=== PATIENT | male | born 1985 | race Caucasian/White ===

== ENCOUNTER 2022-09-24 23:59 | Emergency (ER) | payer BC, SELFPAY ==
--- NOTE | 2022-09-25 00:03 | ED.GENADULT ---
HPI - General Adult General Chief complaint: Dental/Oral Stated complaint: tooth ache Time Seen by Provider: 09/25/22 00:02 History of Present Illness HPI narrative: 37yo man with severe dental caries presents with left upper molar pain at the site of a severely eroded tooth #16. No fevers or chills or neck swelling. Related Data Allergies Allergy/AdvReac Type Severity Reaction Status Date / Time No Known Allergies Allergy Verified 09/25/22 00:03 Review of Systems Review of Systems: All systems reviewed & are unremarkable except as noted in HPI and below Constitutional: Constitutional: Denies chills and Denies fever(s) ENT: Denies dizziness Cardiovascular: Cardiovascular: Denies chest pain Respiratory: Respiratory: Denies dyspnea Exam Const: General: healthy appearing, no acute distress and alert Nutritional Appearance: well nourished HENMT: Other: severe dental caries; no gingival abscess Eyes: Conjunctivae: conjunctivae normal Resp: Effort & Inspection: normal respiratory effort and not labored Cardio: Rate: regular rate Skin: General skin exam: normal color, no jaundice and no pallor Medical Decision Making [facility] Narrative Medical decision making narrative: odontalgia DDx dental caries, periapical abscess, gingivitis Discharge Plan Discharge Clinical Impression: Odontalgia, Severe dental caries Patient Disposition: Home, Self-Care Condition: Improved Instructions: Antibiotic Form Additional Instructions: Take the antibiotics as prescribed. Pain should resolve within the next 48 hours. If your pain returns while waiting weeks or months to get in to the dentist, you can use the one refill to complete another course of antibiotics. Prescriptions: New cephalexin 500 mg capsule 500 mg PO TIDWMEAL Qty: 30 1RF ketorolac 10 mg tablet 10 mg PO Q6H PRN (Reason: moderate to severe acute pain) 5 Days Qty: 15 0RF Follow-up/Referrals: UNKNOWN,DOCTOR [Primary Care Provider] - Stand Alone Forms: Work/School Release IP Time of Disposition: 00:07
[2022-09-25 00:04] VITALS: BP 154/93; PULSE 103; RESP 20; TEMP 36.2; O2SAT 99
[2022-09-25] MEDS: KETOROLAC (*BKC) 60 MG/2 ML VIAL IM (00:12)
[2022-09-25] MEDS: CEPHALEXIN 500 MG CAPSULE PO (00:12)
[2022-09-25 00:13] VITALS: BP 154/93; PULSE 100; RESP 16; TEMP 36.6; O2SAT 96
[2022-09-25 00:22] VITALS: PULSE 93; RESP 20; O2SAT 99
== END 2022-09-25 00:22 | disposition home or self-care (01) ==
LOC: CHSED 09-25 00:10
PROVIDERS: Emergency Provider Emergency Medicine; PCP Physician Assistant
DX: K02.9 Dental caries, unspecified (principal)
CPT/HCPCS: 96372; 99284; A9270; J1100; J1885

== ENCOUNTER 2022-11-11 13:20 | Emergency (ER) | payer BC, SELFPAY ==
[2022-11-11 13:20] VITALS: BP 125/78; PULSE 82; RESP 16; TEMP 36.4; O2SAT 97
--- NOTE | 2022-11-11 14:22 | ED.GENADULT ---
HPI - General Adult General Chief complaint: Skin/Abscess/Foreign Body Stated complaint: rash Source: patient Mode of arrival: ambulatory Limitations: no limitations History of Present Illness HPI narrative: 37-year-old white male was in the weeds helping his grandfather clean the area 2 days later 5 days ago he broke out in a red erythematous pruritic rash his trunk And his arms. He is using Benadryl cream without much success. Has no problems breathing or cough. Denies any problems eating or drinking voiding or stooling fever sore throat runny nose shortness of breath dizziness or lightheadedness lumps or bumps or lesions bleeding or bruising or any other complaints. Allergies: No known drug allergies past medical history. Hyperlipidemia Related Data Home Medications Medication Instructions Recorded Confirmed atorvastatin 20 mg tablet 20 mg PO DAILY 11/11/22 11/11/22 venlafaxine 150 mg 150 mg PO DAILY 11/11/22 11/11/22 capsule,extended release 24 hr Allergies Allergy/AdvReac Type Severity Reaction Status Date / Time No Known Allergies Allergy Verified 11/11/22 13:48 Review of Systems Review of Systems: All systems reviewed & are unremarkable except as noted in HPI and below Exam Narrative: White male patient no apparent distress.? Head normocephalic, atraumatic.? Eyes conjunctiva pink sclera nonicteric.? Extraocular movements are intact.? Ears externally normal.? Oropharynx is clear with moist mucous membranes without exudates.? Neck is supple nontender no lymphadenopathy.? Lungs are clear.? Heart is regular rate and rhythm without murmurs gallops or rubs.? Extremities no cyanosis clubbing or edema.? Skin is warm and dry. Erythematous macular papular rash on his trunk and his arms consistent with contact dermatitis. Neurological patient is alert and oriented x4.? Motor and sensory grossly intact.? Gait is normal. Course Vital Signs Vital signs: Vital Signs Temperature 36.4 C L 11/11/22 13:20 Pulse Rate 82 11/11/22 13:20 Respiratory Rate 16 11/11/22 13:20 Blood Pressure 125/78 11/11/22 13:20 Pulse Oximetry 97 11/11/22 13:20 Oxygen Delivery Room Air 11/11/22 13:20 Temperature 36.4 C L 11/11/22 13:20 Pulse Rate 82 11/11/22 13:20 Respiratory Rate 16 11/11/22 13:20 Blood Pressure 125/78 11/11/22 13:20 Pulse Oximetry 97 11/11/22 13:20 Oxygen Delivery Room Air 11/11/22 13:20 Medical Decision Making MDM Narrative Medical decision making narrative: patient is placed in room 5 history and physical is performed was given Decadron 10 mg IM. Independent Historian: ? Patient Differential Dx includes but not limited to: contact dermatitis poison dayna poison [place] Medications reviewed Medications treatments given: above Independently Interpreted by me:? External Source Review:?? Medical conditions/social Situation Impacting Patients Care:?? Shared decision Making:? evaluation was discussed with the patient all questions were asked and answered patient agreed on the plan. Noted be taking prednisone 40 mg a day for 5 days and using Benadryl 25 mg every 4 hours as needed for itching. He would return if you get worse or develops any new symptoms. ? Clinical impression:? ? Contact dermatitis ? Patient disposition: ? discharge home ? Condition at discharge: stable Vital Signs Vital Signs: Vital Signs Temperature 36.4 C L 11/11/22 13:20 Pulse Rate 82 11/11/22 13:20 Respiratory Rate 16 11/11/22 13:20 Blood Pressure 125/78 11/11/22 13:20 Pulse Oximetry 97 11/11/22 13:20 Oxygen Delivery Room Air 11/11/22 13:20 Temperature 36.4 C L 11/11/22 13:20 Pulse Rate 82 11/11/22 13:20 Respiratory Rate 16 11/11/22 13:20 Blood Pressure 125/78 11/11/22 13:20 Pulse Oximetry 97 11/11/22 13:20 Oxygen Delivery Room Air 11/11/22 13:20 Discharge Plan Discharge Clinical Impression: Contact dermatitis Qualifier
[2022-11-11 14:40] VITALS: BP 133/94; PULSE 83; RESP 14; O2SAT 98
== END 2022-11-11 14:45 | disposition home or self-care (01) ==
PROVIDERS: Emergency Provider Emergency Medicine; PCP Physician Assistant
DX: L25.9 Unspecified contact dermatitis, unspecified cause (principal)
CPT/HCPCS: 96372; 99283; J1100

== ENCOUNTER 2022-11-29 16:32 | Emergency (ER) | payer BC, SELFPAY ==
[2022-11-29 16:32] VITALS: BP 148/96; PULSE 93; RESP 16; TEMP 36.3; O2SAT 96
--- NOTE | 2022-11-29 16:50 | ED.DENTAL ---
HPI - Dental/Oral General Chief complaint: Dental/Oral Stated complaint: dental pain; jaw swelling Source: patient Mode of arrival: ambulatory Limitations: no limitations History of Present Illness HPI Narrative: 37-year-old male presents with severe tooth decay I had an appointment with dentist that was canceled secondary to a dentist retiring, has surrounding gum inflammation with a right jaw swelling with no shortness of breath no fever chills. MD Complaint: tooth pain Teeth map: 1. severe tooth decay surrounding gum inflammation Onset (ago): week(s) Duration: constant Severity: moderate Severity scale (1-10): 7 Relieving factors: nothing Exacerbating factors: chewing, cold and drinking fluids Context: history of dental caries and poor dental care Associated symptoms: gum swelling Related Data Home Medications Medication Instructions Recorded Confirmed venlafaxine 150 mg 150 mg PO DAILY 11/11/22 11/29/22 capsule,extended release 24 hr (Effexor XR) Allergies Allergy/AdvReac Type Severity Reaction Status Date / Time No Known Allergies Allergy Verified 11/11/22 13:48 Review of Systems Review of Systems: All systems reviewed & are unremarkable except as noted in HPI and below PMFSH Past Medical History Medical History Patient denies medical problems Exam Const: General: healthy appearing Nutritional Appearance: obese Orientation/consciousness: patient oriented x3 Limitations: no limitations HENMT: Other: right lower jaw swelling with tender submandibular gland on the right Eyes: Conjunctivae: conjunctivae normal Neck: Neck: lymphadenopathy Chest: Chest palpation & inspection: normal inspection of the chest Resp: Effort & Inspection: normal respiratory effort Auscultation: clear to auscultation bilaterally Cardio: Rate: regular rate Rhythm: regular rhythm GI: Auscultation: normal bowel sounds Skin: General skin exam: normal color Rashes: no rashes Neuro: General: patient oriented x3 Cranial nerves: Yes Nystagmus not present Extrem: General: normal to inspection Psych: Mental Status: mental status grossly normal Affect: normal affect Course Course Emergency Course: patient rating his pain about a 7/10 with some severe tooth decay and his lower right molars with surrounding gum inflammation, patient receiving 60mg IM Toradol and antibiotics called to his pharmacy. Patient is currently on a waiting list to see a dentist. Vital Signs Vital signs: Vital Signs Temperature 36.3 C L 11/29/22 16:32 Pulse Rate 93 11/29/22 16:32 Respiratory Rate 16 11/29/22 16:32 Blood Pressure 148/96 H 11/29/22 16:32 Pulse Oximetry 96 11/29/22 16:32 Oxygen Delivery Room Air 11/29/22 16:32 Temperature 36.3 C L 11/29/22 16:32 Pulse Rate 93 11/29/22 16:32 Respiratory Rate 16 11/29/22 16:32 Blood Pressure 148/96 H 11/29/22 16:32 Pulse Oximetry 96 11/29/22 16:32 Oxygen Delivery Room Air 11/29/22 16:32 Critical Care Time Critical Care Time Critical Care Time: No Discharge Plan Discharge Clinical Impression: Toothache, Dental abscess Patient Disposition: Home, Self-Care Condition: Stable Instructions: Antibiotic Form, Dental Abscess (ED), Toothache (ED) Additional Instructions: Take medicine as prescribed and follow-up with dentist as soon as possible for further evaluation and treatment. Prescriptions: New amoxicillin 500 mg tablet 500 mg PO TID Qty: 30 0RF naproxen 500 mg tablet 500 mg PO BID PRN (Reason: pain) Qty: 20 0RF No Action venlafaxine [Effexor XR] 150 mg capsule,extended release 24hr 150 mg PO DAILY Follow-up/Referrals: Mohinder,SAMMI Monsivais [Primary Care Provider] - Stand Alone Forms: Work/School Release IP Time of Disposition: 16:55
[2022-11-29] MEDS: KETOROLAC (*BKC) 60 MG/2 ML VIAL IM (16:59)
== END 2022-11-29 17:05 | disposition home or self-care (01) ==
PROVIDERS: Emergency Provider Emergency Medicine; PCP Physician Assistant
DX: K08.89 Other specified disorders of teeth and supporting structures (principal); K04.7 Periapical abscess without sinus
CPT/HCPCS: 96372; 99283; J1885

== ENCOUNTER 2022-11-30 09:45 | Emergency (ER) | payer BC, SELFPAY ==
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
[2022-11-30 09:48] VITALS: BP 142/92; PULSE 78; RESP 20; TEMP 36.6; O2SAT 99
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
[2022-11-30 10:54] VITALS: BP 140/80; PULSE 84; RESP 20; TEMP 37; O2SAT 99
== END 2022-11-30 11:07 | disposition home or self-care (01) ==
PROVIDERS: Emergency Provider Emergency Medicine; PCP Physician Assistant
DX: S30.1XXA Contusion of abdominal wall, initial encounter (principal); V47.0XXA Car driver injured in collision with fixed or stationary object in nontraffic accident, initial encounter
CPT/HCPCS: 74176; 99284

== ENCOUNTER 2023-01-12 15:40 | Emergency (ER) | payer BC, SELFPAY ==
--- NOTE | ~2023-01-12 | XR_ITS ---
EXAMINATION: XR chest 2V DATE: 01/12/2023 16:35 INDICATION: Shortness of breath and 2 weeks of cough TECHNIQUE: frontal and lateral views of the chest were obtained. COMPARISON: Chest radiograph dated 08/19/2016 FINDINGS: The lungs remain clear with no focal airspace opacities, pulmonary edema, pleural effusion or pneumot horax. The cardiomediastinal silhouette is normal. Mild to moderate thoracic spondylosis with chronic mild anterior wedging at T11-L1. IMPRESSION: 1. No acute cardiopulmonary disease. Reviewed, dictated and finalized at location A.
--- NOTE | 2023-01-12 15:47 | ECG_ITS ---
Measurements Intervals [place] Rate: 115 P: 47 IA: 140 QRS: 1 QRSD: 90 T: 57 QT: 298 QTc: 412 Interpretive Statements SINUS TACHYCARDIA ABNORMAL RHYTHM ECG NO PREVIOUS ECG AVAILABLE FOR COMPARISON Electronically Signed On 01-12-2023 17:12:53 CDT by Karlo Sue M.D.
[2023-01-12 15:50] VITALS: BP 133/96; PULSE 134; RESP 24; TEMP 36.2; O2SAT 95
[2023-01-12 15:56] VITALS: O2SAT 96
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
[2023-01-12 17:00] VITALS: BP 135/85; PULSE 108; RESP 20; O2SAT 95
[2023-01-12 17:13] LABS: Influenza A QL RT-PCR Negative (Negative); Influenza B QL RT-PCR Negative (Negative); SARS-CoV-2 RNA PCR Negative (Negative)
[2023-01-12 17:14] LABS: Hematocrit 40.3 % (40.0-54.0); Hemoglobin 13.8 g/dL (14.0-18.0); Mean Corpuscular HGB Conc 34.2 g/dL (32.0-36.0); Mean Corpuscular Hemoglobin 30.1 pg (27.0-31.0); Mean Corpuscular Volume 87.8 fL (78.0-102.0); Mean Platelet Volume 8.7 fl (8.7-11.0); Platelet Count Result 267 K/mm3 (150-420); Red Blood Count 4.59 M/mm3 (4.70-6.10); Red Cell Distribution Width 12.2 % (11.6-14.4); White Blood Count 10.1 K/mm3 (4.8-10.8)
[2023-01-12 17:14] LABS: RSV RNA, RT-PCR Negative (Negative)
[2023-01-12 17:28] LABS: Alanine Aminotransferase 55 U/L (16-63); Albumin Level 3.9 g/dL (3.4-5.0); Alkaline Phosphatase 74 U/L (46-116); Anion Gap 10 mmol/L (8-16); Aspartate Amino Transferase 16 U/L (15-37); Bilirubin,Total 0.4 mg/dL (0.00-1.00); Blood Urea Nitrogen 17 mg/dL (7-18); Calcium 9.4 mg/dL (8.5-10.1); Carbon Dioxide 27 mmol/L (21-32); Chloride 103 mmol/L (98-108); Estimated CRCL calculation 129 ml/min; Estimated Glomerular Filt Rate > 60; Glucose 94 mg/dL (70-99); Osmolality Calculated 291 mOsm/kg (285-295); Potassium 3.8 mmol/L (3.5-5.1); Sodium 140 mmol/L (136-145); Total Protein 7.6 g/dL (6.4-8.2)
[2023-01-12 18:03] VITALS: BP 142/80; PULSE 98; RESP 20; TEMP 36.8; O2SAT 95
--- NOTE | 2023-01-12 18:06 | PC.NURSE ---
On 01/12/23, the student, [NAHEED MAYS], provided care and completed [facility] documentation on this patient. I have reviewed the student's documentation and agree with the findings.
== END 2023-01-12 18:07 | disposition home or self-care (01) ==
PROVIDERS: Emergency Provider Emergency Medicine
DX: J20.9 Acute bronchitis, unspecified (principal); Z20.822 Contact with and (suspected) exposure to COVID-19
CPT/HCPCS: 36415; 71046; 80053; 85027; 87637; 93005; 99283

== ENCOUNTER 2023-06-16 16:48 | Emergency (ER) | payer BC, SELFPAY ==
[2023-06-16 16:52] VITALS: BP 119/84; PULSE 101; RESP 19; TEMP 36.5; O2SAT 98
--- NOTE | 2023-06-16 16:55 | ED.GENADULT ---
HPI - General Adult General Chief complaint: Nausea/Vomiting/Diarrhea Stated complaint: nausea/fatigue Time Seen by Provider: 06/16/23 16:54 Source: patient Mode of arrival: ambulatory Limitations: no limitations History of Present Illness HPI narrative: 38-year-old white male presents with 4 days of nausea vomiting and diarrhea. He last threw up 2 hours ago after he had some chicken and fries. Denies any dizziness or lightheadedness. His 's had some nausea vomiting diarrhea. He has had a little bit of a runny nose no cough sore throat fever sore throat difficulty breathing lumps or bumps or swelling rash or itching bleeding or bruising problems voiding he has had 4 diarrheal stools nonbloody loose today walking talking seeing hearing fine. Denies any other medical problems or complaints Past medical history Anxiety on Effexor, history of heart attack when he was 24 with a normal heart catheterization. Surgeries: Hip and knee surgery heart catheterization at 24 years old. Related Data Home Medications Medication Instructions Recorded Confirmed atorvastatin 40 mg tablet 40 mg PO DAILY 06/16/23 06/16/23 venlafaxine 75 mg capsule,extended 75 mg PO DAILY 06/16/23 06/16/23 release 24 hr Allergies Allergy/AdvReac Type Severity Reaction Status Date / Time No Known Allergies Allergy Verified 06/16/23 16:54 Review of Systems Review of Systems: All systems reviewed & are unremarkable except as noted in HPI and below PMFSH Past Medical History Medical History Patient denies medical problems Exam Narrative: White male patient with no apparent distress.? Head normocephalic, atraumatic.? Eyes conjunctiva pink sclera nonicteric.? Extraocular movements are intact.? Ears externally normal.? Oropharynx is clear with moist mucous membranes without exudates.? Neck is supple nontender no lymphadenopathy.? Back is nontender.? Lungs are clear.? Heart is regular rate and rhythm without murmurs gallops or rubs.? pulse 101 this increases when she stands. He felt a little lightheaded. Chest wall nontender.? Back is nontender. Abdomen is soft and nontender no hepatosplenomegaly or masses no CVA tenderness no abdominal bruits.? Extremities no cyanosis clubbing or edema.? Skin is warm and dry without rashes or lesions.? Neurological patient is alert and oriented x4.? Motor and sensory grossly intact.? Gait is normal. Course Vital Signs Vital signs: Vital Signs Temperature 36.5 C 06/16/23 16:52 Pulse Rate 101 H 06/16/23 16:52 Respiratory Rate 19 06/16/23 16:52 Blood Pressure 119/84 06/16/23 16:52 Pulse Oximetry 98 06/16/23 16:52 Oxygen Delivery Room Air 06/16/23 16:52 Temperature 36.5 C 06/16/23 16:52 Pulse Rate 101 H 06/16/23 16:52 Respiratory Rate 19 06/16/23 16:52 Blood Pressure 119/84 06/16/23 16:52 Pulse Oximetry 98 06/16/23 16:52 Oxygen Delivery Room Air 06/16/23 16:52 Medical Decision Making MDM Narrative Medical decision making narrative: Patient was placed in Room # 2 flu RSV and COVID were negative Independent Historian: Differential Dx includes but not limited to: acute gastroenteritis dehydration flu COVID RSV Medications were Reviewed: home meds review Medications, treatment, ED course: normal saline 1 L bolus Zofran 4 mg IV 5:19 p.m. nausea is better. 5:53 p.m. feels much better ready for discharge wishing discharge Independently Interpreted by me: External Source Review: Prescription monitoring program he had a prescription for oxycodone year ago. Shared decision Making: evaluation and plan were discussed all questions were asked and answered patient agreed with plan. Advance his diet slowly Zofran every 4 hours as needed for nausea vomiting return if he gets worse or develops any new symptoms Social Situation Impacting Patients Care: DISCHARGE DIAGNOSIS: acute gastroenteritis
[2023-06-16] MEDS: ONDANSETRON INJ 4 MG/2 ML VIAL IV PUSH (17:09)
[2023-06-16] MEDS: SODIUM CHLORIDE 0.9% IV 1,000 ML 999 ML IV CONT (17:10)
[2023-06-16 17:41] LABS: Influenza A QL RT-PCR Negative (Negative); Influenza B QL RT-PCR Negative (Negative); RSV RNA, RT-PCR Negative (Negative); SARS-CoV-2 RNA PCR Negative (Negative)
[2023-06-16 18:02] VITALS: BP 136/83; PULSE 77; RESP 20; TEMP 36.7; O2SAT 98
== END 2023-06-16 18:07 | disposition home or self-care (01) ==
PROVIDERS: Emergency Provider Emergency Medicine; PCP Physician Assistant
DX: K52.9 Noninfective gastroenteritis and colitis, unspecified (principal); Z20.822 Contact with and (suspected) exposure to COVID-19
CPT/HCPCS: 87637; 96361; 96374; 99284; J2405; J7030

== ENCOUNTER 2024-12-06 14:56 | Emergency (ER) | payer BC, SELFPAY ==
[2024-12-06 14:56] VITALS: BP 154/92; PULSE 87; RESP 20; TEMP 36.7; O2SAT 98
[2024-12-06 15:00] VITALS: O2SAT 100
--- OUTSIDE RECORDS SUMMARY | 2024-12-06 15:04 | XMS_ITS | Clinical Summary ---
Author Organization [facility] Address [address] [place] [address] Care Team Providers Care Occupational Therapy Specialist Name Role Phone Yodit Vines Primary Care Provider [phone] Allergies No known active allergies Medications venlafaxine XR 150 MG 24 hr capsule TAKE 1 CAPSULE BY MOUTH DAILY IN THE MORNING AT THE SAME TIME EACH DAY WITH FOOD 07/13/2019 Active venlafaxine XR (EFFEXOR-XR) 75 MG 24 hr capsule Take 75 mg by mouth daily. with food 12/13/2021 Active atorvastatin (LIPITOR) 10 MG tablet Take 1 tablet (10 mg total) by mouth nightly at bedtime. Active Active Problems Problem Noted Date Diagnosed Date Calculi, ureter 07/30/2022 Overview (07/30/2022): Added automatically from request for surgery [id number] Family History Relation Status Comments Mother Alive Social History Tobacco Use Types Packs/Day Years Used Date Smoking Tobacco: Former Smokeless Tobacco: Never Tobacco Cessation:Counseling Given: Not Answered Alcohol Use Standard Drinks/Week Comments Yes 0 (1 standard drink = 0.6 oz pur e alcohol) socially AUDIT-C Answer Date Recorded Frequency of Alcohol Consumption Never 04/15/2019 Average Number of Drinks Not on file 020 Frequency of Binge Drinking Not on file 04/01 Sex and Gender Information Value Date Recorded Sex Assigned at Not on file Legal Sex Male 10:27 PM CDT Gender Identity Not on file Sexual Orientation Not on file Last Filed Vital Signs Vital Sign Reading Time Taken Comments Blood Pressure 122/70 06/28/2023 10:00 PM CDT Pulse 100 06/28/2023 10:00 PM CDT Temperature 36.3 C (97.4 F) 06/28/2023 8:09 PM CDT Respiratory Rate 21 06/28/2023 10:00 PM CDT Oxygen Saturation 99% 06/28/2023 10:00 PM CDT Inhaled Oxygen Concentration - - Weight 144 kg (317 lb 6.4 oz) 06/28/2023 8:09 PM CDT Height 175.3 cm (5' 9) 06/28/2023 8:09 PM CDT Body Mass Index 46.87 06/28/2023 8:09 PM CDT Plan of Treatment Health Maintenance Due Date Last Done Comments Annual Physical 1989 Hepatitis C 2004 HPV Vaccines (1 - 3-dose SCDM series) 2013 COVID-19 Vaccine ( season) 2023 PHQ-2 (Physician [place]) 04/01/2024 DTaP, Tdap and Td Vaccines (7 - Td or Tdap) 06/17/2025 06/18/2015, 10/01/2001, 1990, Additional history exists Hepatitis B Vaccines Completed 06/13/1998, 02/14/1998, 12/22/1997 Meningococcal B Vaccine Aged Out No l onger eligible based on patient's age to complete this topic Meningococcal Vaccine Aged Out No adela carlyle eligible based on patient's age to complete this topic Pneumococcal Vaccine: Pediatrics (0 to 5 Years) and At-Risk Patients (6 to 49 Years) Aged Out No longer eligible based on patient's age to complete this topic RSV Immunizations Under 20 Months Aged Out No longer eligible based on patient's age to complete this topic Insurance [facility] Care Teams Occupational Therapy Specialist Relationship Specialty Start Date End Date Yodit Vines PA [address] [place] [address] PCP - General PHYSICIAN ROTARY RIG ENGINE OPERATOR 04/15/19
--- OUTSIDE RECORDS SUMMARY | 2024-12-06 15:04 | XMS_ITS | Encounter Summary ---
Author Organization [facility] Address [address] [place] [address] Care Team Providers Care Leasing Specialist Name Role Phone Yodit Vines Primary Care Provider [phone] Encounter Details Date Type Department Care Team (Late st Contact Info) Description 07/27/2022 Prep for Procedure [facility] Urology - [address] [place] [address] Adilson Uriarte MD [address] [place] [address] Social History Tobacco Use Types Packs/Day Years Used Date Smoking Tobacco: Former Smokeless Tobacco: Never Alcohol Use Standard Drinks/Week Comments Yes 0 [...] on file Sexual Orientation Not on file COVID-19 Exposure Response Date Recorded In the last 10 days, have yo u been in contact with someone who was confirmed or suspected to have Coronavirus/COVID-19? No / Unsure 07/13/2022 2:26 AM CDT documented as of this encounter Plan of Treatment Not on file documented as of this encounter Visit Diagnoses Not on filedocumented in this encounter Care Teams Leasing Specialist Relationship Specialty Start Date End Date Yodit Vines PA [address] [place] [address] PCP - General PHYSICIAN BIOMASS PRODUCTION MANAGER 04/15/19 documented as of this encounter
--- NOTE | 2024-12-06 15:06 | ED.GENADULT ---
HPI - General Adult General Chief complaint: Upper Respiratory Infection Stated complaint: sinus congestion Time Seen by Provider: 12/06/24 15:02 History of Present Illness HPI narrative: Mike is a previously healthy 39M that presented to the ED with bilateral maxillary sinus pain, congestion, and cough for several days that has become worse today. No fevers or dyspnea. Related Data Home Medications ?Medication ?Instructions ?Recorded ?Confirmed ?Last Taken ?Type atorvastatin 40 mg tablet 40 mg PO DAILY 06/16/23 06/16/23 Unknown History venlafaxine 75 mg capsule,extended 75 mg PO DAILY 06/16/23 06/16/23 Unknown History release 24 hr Allergies Allergy/AdvReac Type Severity Reaction Status Date / Time No Known Allergies Allergy Verified 12/06/24 15:02 Review of Systems Review of Systems: All systems reviewed & are unremarkable except as noted in HPI and below [facility] Past Medical History Medical History Patient denies medical problems Exam Const: General: cooperative, healthy appearing, comfortable, no acute distress, well developed, alert, awake and Physically active Orientation/consciousness: oriented to person, oriented to place and oriented to time HENMT: Head: normal to inspection, normocephalic and atraumatic Ears: hearing grossly normal bilaterally and external ears normal Face/Nose/Sinus: Normal external nose present Other: erythematous and boggy nasal turbinates Eyes: General: appearance normal, both eyes and all related structures Periorbital: periorbital findings normal Sclera: sclerae normal Pupils: Equal, round and reactive pupils present Neck: Neck: normal visual inspection Chest: Chest palpation & inspection: normal inspection of the chest Resp: Effort & Inspection: normal respiratory effort, able to speak in complete sentences and no respiratory distress Auscultation: clear to auscultation bilaterally Cardio: Jugular venous distension: no JVD Rate: regular rate Rhythm: regular rhythm Skin: General skin exam: normal color and no rashes or lesions noted Neuro: General: oriented to person, oriented to place and oriented to time Cranial nerves: Yes Equal, round and reactive pupils present Extrem: General: normal to inspection Course Vital Signs Vital signs: Vital Signs Temperature 98.0 F 12/06/24 14:56 Pulse Rate 87 12/06/24 14:56 Respiratory Rate 20 12/06/24 14:56 Blood Pressure 154/92 H 12/06/24 14:56 Pulse Oximetry 98 12/06/24 14:56 Oxygen Delivery Room Air 12/06/24 14:56 Temperature 98.0 F 12/06/24 14:56 Pulse Rate 87 12/06/24 14:56 Respiratory Rate 12/06/24 14:56 Blood Pressure 154/92 H 12/06/24 14:56 Pulse Oximetry 100 12/06/24 15:00 Oxygen Delivery Room Air 12/06/24 15:00 Medical Decision Making Vital Signs Vital Signs: Vital Signs Temperature 98.0 F 12/06/24 14:56 Pulse Rate 87 12/06/24 14:56 Respiratory Rate 12/06/24 14:56 Blood Pressure 154/92 H 12/06/24 14:56 Pulse Oximetry 98 12/06/24 14:56 Oxygen Delivery Room Air 12/06/24 14:56 Temperature 98.0 F 12/06/24 14:56 Pulse Rate 87 12/06/24 14:56 Respiratory Rate 12/06/24 14:56 Blood Pressure 154/92 H 12/06/24 14:56 Pulse Oximetry 100 12/06/24 15:00 Oxygen Delivery Room Air 12/06/24 15:00 Discharge Plan Discharge Clinical Impression: Sinusitis Patient Disposition: Home Condition: Stable Instructions: Antibiotic Form Patient Language: Georgian Prescriptions: New amoxicillin-pot clavulanate 875-125 mg tablet 1 tablet PO Q12H Qty: 10 0RF No Action atorvastatin 40 mg tablet 40 mg PO DAILY venlafaxine 75 mg capsule,extended release 24hr 75 mg PO DAILY ondansetron 4 mg tablet,disintegrating 4 mg PO Q4H PRN (Reason: nausea and vomiting) Qty: 12 0RF Rx Instructions: give 1st dose 30min before emetogenic chemo Follow-up/Referrals: Mohinder,SAMMI Monsivais [Primary Care Provider]
== END 2024-12-06 15:15 | disposition home or self-care (01) ==
LOC: CHSED 15:12
PROVIDERS: Emergency Provider Family Medicine; PCP Physician Assistant
DX: J32.9 Chronic sinusitis, unspecified (principal)
CPT/HCPCS: 99283; A9270

== ENCOUNTER 2025-01-19 13:03 | Emergency (ER) | payer BC, SELFPAY ==
--- NOTE | ~2025-01-19 | XR_ITS ---
XR ankle RT min 3V 01/19/2025 13:47 INDICATION: Right ankle pain after fall PROCEDURE: 4 views right ankle COMPARISON: No prior studies for comparison. FINDINGS: Fracture, dislocation or subluxation is not identified. The soft tissues appear within normal limits. No foreign bodies are identified. IMPRESSION: 1: NO ACUTE BONE OR JOINT ABNORMALITY IDENTIFIED. Reviewed, dictated and finalized at location O.
--- NOTE | ~2025-01-19 | CT_ITS ---
EXAMINATION: CT cervical spine wo con COMPARISON: None HISTORY: fall from 4 ft TECHNIQUE: Axial images were obtained through the spine without IV contrast. Coronal, sagittal reconstruction images were obtained from the axial views. CT scan performed using dose optimization techniques including the following automated exposure control; adjustment of mA and/or kV; use of iterative reconstruction technique. Automatic exposure control was used to reduce radiation dose. Permanent radiation dose record is archived to PACS. FINDINGS: The vertebral heights are intact. No fracture or subluxation. The disc heights are intact. Soft tissues unremarkable. Impression: No acute abnormality. Reviewed, dictated and finalized at location P. Impression: No acute abnormality.
--- NOTE | ~2025-01-19 | XR_ITS ---
Examination: XR shoulder RT min 2V Clinical History: Fall Comparison: None Technique: 5 films right shoulder Findings/impression: 1. No fracture or dislocation. 2. No significant degenerative changes glenohumeral joint. 3. Mild degenerative changes AC joint. Reviewed, dictated and finalized at location R.
--- NOTE | ~2025-01-19 | CT_ITS ---
EXAMINATION: CT brain wo con COMPARISON: None HISTORY: fall from 4ft, hit posterior side of his head TECHNIQUE: Axial images were obtained through the brain without IV contrast. CT scan performed using dose optimization techniques including the following automated exposure control; adjustment of mA and/or kV; use of iterative reconstruction technique. Automatic exposure control was used to reduce radiation dose. Permanent radiation dose record is archived to PACS. FINDINGS: No acute infarct or parenchymal hemorrhage. No abnormal mass or mass effect. No midline shift. No extra-axial fluid collections. No hydrocephalus. . Mastoid air cells unremarkable. Sinuses and orbits unremarkable. No acute fracture. No significant facial or scalp soft tissue swelling evident. No radiopaque foreign body is seen. Impression: 1.No acute intracranial abnormality. Reviewed, dictated and finalized at location P. Impression: 1.No acute intracranial abnormality.
[2025-01-19 13:03] VITALS: BP 136/81; PULSE 84; RESP 18; TEMP 36.5; O2SAT 99
--- NOTE | 2025-01-19 13:10 | ED.FALL ---
HPI - Fall General Chief Complaint: Fall Stated Complaint: fall; head injury and right ankle pain Time Seen by Provider: 01/19/25 13:10 Source: patient Mode of arrival: ambulatory Limitations: no limitations History of Present Illness HPI Narrative: Patient is a 39-year-old male with a 4 ft high mechanical fall onto concrete prior to arrival. Patient fell off the back of a trailer trying to get onto his truck and landed on the concrete with his posterior head, right shoulder and right ankle. He has abrasions of the left hip region posteriorly on the back from a scrape off the metal. Unknown last tetanus. complaint: fall Onset (ago): hour(s) (One) Fall from: standing and from height (distance) (4 ft off a trailer onto hard concrete) Fall witnessed: no Place fall occurred: work and street Loss of consciousness: none Prolonged down time: no Symptoms prior to fall: none Context: tripped/slipped Location of injury: head Location of injury - extremities: Right: shoulder and ankle Severity: moderate Severity scale (1-10): 4 Quality: sharp Associated symptoms (after fall): denies Related Data Home Medications ?Medication ?Instructions ?Recorded ?Confirmed ?Last Taken ?Type atorvastatin 40 mg tablet 40 mg PO DAILY 06/16/23 06/16/23 Unknown History venlafaxine 75 mg capsule,extended 75 mg PO DAILY 06/16/23 06/16/23 Unknown History release 24 hr Allergies Allergy/AdvReac Type Severity Reaction Status Date / Time No Known Allergies Allergy Verified 01/19/25 14:43 Review of Systems Review of Systems: All systems reviewed & are unremarkable except as noted in HPI and below Constitutional: Constitutional: Reports no additional constitutional complaints Eyes: Eyes: Reports no additional eye complaints ENT: Reports system reviewed and no additional complaints, except as documented Cardiovascular: Cardiovascular: Reports no additional cardiovascular complaints Respiratory: Respiratory: Reports no additional respiratory complaints Gastrointestinal: Gastrointestinal: Reports no additional gastrointestinal complaints Genitourinary: Genitourinary: Reports no additional male genitourinary complaints Musculoskeletal: Musculoskeletal: Reports no additional musculoskeletal complaints Integumentary/Breasts: Skin/Breast: Reports system reviewed and no additional complaints, except as docu Neurologic: Reports system reviewed and no additional complaints, except as documented Psychiatric: Psychiatric: Reports no additional psychiatric complaints Endocrine: Endocrine: Reports no additional endocrine complaints Hematologic/Lymphatic: Hematologic/Lymphatic: Reports no additional hematologic/lymphatic complaints Allergic/Immunologic: Allergic/Immunologic: Reports no additional allergic/immunologic complaints PMFSH Past Medical History Medical History Patient denies medical problems Exam Const: General: healthy appearing Nutritional Appearance: well nourished Orientation/consciousness: patient oriented x3 Limitations: no limitations HENMT: Head: normal to inspection Ears: external ears normal Face/Nose/Sinus: Normal external nose present Face and sinus: normal facial exam Eyes: Conjunctivae: conjunctivae normal Pupils: Equal, round and reactive pupils present EOM: EOMs intact bilaterally Neck: Neck: normal visual inspection Chest: Chest palpation & inspection: normal inspection of the chest Resp: Effort & Inspection: normal respiratory effort and not labored Auscultation: clear to auscultation bilaterally and no crackles Cardio: Rate: regular rate Rhythm: regular rhythm Heart sounds: no murmurs GI: Inspection: non-distended GI Palp: Yes Soft to palpation and No Tenderness to palpation present (GI) Auscultation: normal bowel sounds : General: Yes bladder normal to palpation Back/Spine/Pelvis: Back: no CVA tenderness Skin: General skin exam: normal color Rashes: no rashes Wounds: wound noted Other: Left lower back at the High hip area has a few topical linear abrasions to the skin without bleeding or infection Neuro: General: patient oriented x3, moves all extremities, no meningeal signs and no focal motor deficits Extrem: General: normal to inspection, no clubbing, cyanosis or edema and no pedal edema Other: Tender right shoulder to palpation and range of motion; tender right ankle the palpation and range of motion with some point tenderness on the lateral aspect of the malleolus and inferior to the malleolus Psych: Mental Status: mental status grossly normal Affect: normal affect Attitude: cooperative Course Vital Signs Vital signs: Vital Signs Temperature 36.5 C 01/19/25 13:03 Pulse Rate 84 01/19/25 13:03 Respiratory Rate 18 01/19/25 13:03 Blood Pressure 136/81 01/19/25 13:03 Pulse Oximetry 99 01/19/25 13:03 Oxygen Delivery Room Air 01/19/25 13:03 Temperature 36.5 C 01/19/25 13:03 Pulse Rate 84 01/19/25 13:03 Respiratory Rate 18 01/19/25 13:03 Blood Pressure 136/81 01/19/25 13:03 Pulse Oximetry 99 01/19/25 13:03 Oxygen Delivery Room Air 01/19/25 13:03 MDM - Fall MDM Narrative Medical decision making narrative: Patient is a 39-year-old male with a 4 foot high level mechanical fall onto his head and shoulder right as well as right ankle. CT scan. X-rays. Toradol. Imaging Data Attestation: I personally reviewed and interpreted this imaging study as follows: Radiologist's impression: CT scan of the head was negative for acute process CT scan of the cervical spine was negative for acute process X-ray right shoulder was negative for acute process X-ray right ankle is negative for acute process Discharge Plan Discharge Clinical Impression: Closed head injury, Ankle sprain, Contusion of right shoulder, Fall Patient Disposition: Home Condition: Stable Instructions: Ankle Sprain (ED), Head Injury (ED), Contusion in Adults (ED) Patient Language: Danish Prescriptions: New tramadol 50 mg tablet 50 mg PO Q8H PRN (Reason: pain) Qty: 20 0RF Rx Instructions: 1-2 tabs per dose No Action atorvastatin 40 mg tablet 40 mg PO DAILY venlafaxine 75 mg capsule,extended release 24hr 75 mg PO DAILY ondansetron 4 mg tablet,disintegrating 4 mg PO Q4H PRN (Reason: nausea and vomiting) Qty: 12 0RF Rx Instructions: give 1st dose 30min before emetogenic chemo amoxicillin-pot clavulanate 875-125 mg tablet 1 tablet PO Q12H Qty: 10 0RF Follow-up/Referrals: Mohinder,SAMMI Monsivais [Primary Care Provider] Time of Disposition: 14:45
--- NOTE | 2025-01-19 13:25 | PC.NURSE ---
PATIENT TRANSPORTED TO IMAGING VIA WHEEL CHAIR
[2025-01-19] MEDS: TETANUS,DIPHTHERIA,AC PERTUSSIS ADULT 0.5 ML (ADACEL) IM (13:45)
[2025-01-19] MEDS: KETOROLAC (*BKC) 60 MG/2 ML VIAL IM (13:45)
--- NOTE | 2025-01-19 14:42 | PC.NURSE ---
DR SALGUERO AT THE BEDSIDE
[2025-01-19 15:07] VITALS: BP 126/80; PULSE 74; RESP 16; O2SAT 100
--- OUTSIDE RECORDS SUMMARY | 2025-01-19 15:58 | XMS_ITS | Clinical Summary ---
Author Organization [facility] Address [address] [place] [address] Care Team Providers Care Associate Professor Of Radiology Name Role Phone Yodit Vines Primary Care Provider [phone] Allergies No known active allergies Medications venlafaxine [...] (07/30/2022): Added automatically from request for surgery [id number] Family History Relation Status Comments Mother Alive [...] Vaccines (1 - 3-dose SCDM series) 2013 PHQ-2 (Physician [place]) 04/01/2024 COVID-19 Vaccine ( season) 2024 Influenza Adult (#1) 2024 DTaP, Tdap and Td Vaccines (7 - Td or Tdap) 06/17/2025 06/18/2015, 10/01/2001, 1990, Additional history exists Hepatitis B Vaccines Completed 06/13/1998, 02/14/1998, 12/22/1997 Hepatitis A Vaccines Aged Out No long er eligible based on patient's age to complete this topic Meningococcal B Vaccine Aged Out No l [...] patient's age to complete this topic [place] [address] MEDICAID Care Teams Associate Professor Of Radiology Relationship Specialty Start Date End Date Yodit Vines PA [address] [place] [address] PCP - General PHYSICIAN MANUAL WRITER 04/15/19
--- OUTSIDE RECORDS SUMMARY | 2025-01-19 15:58 | XMS_ITS | Encounter Summary ---
Author Organization [facility] Address [address] [place] [address] Care Team Providers Care Power Generation Equipment Repairer Name Role Phone Yodit Vines Primary Care Provider [phone] Encounter Details Date Type Department Care Team (Late st Contact Info) Description 07/27/2022 Prep for Procedure [facility] Urology - [address] [place] [address] Adilson Uriarte MD [address] [place] [address] Social History Tobacco Use Types [...] on filedocumented in this encounter Care Teams Power Generation Equipment Repairer Relationship Specialty Start Date End Date Yodit Vines PA [address] [address] PCP - General PHYSICIAN FOLDER OPERATOR 04/15/19 documented as of this encounter
--- OUTSIDE RECORDS SUMMARY | 2025-01-19 17:31 | XMS_ITS | Clinical Summary ---
Author Organization [facility] Address [address] [place] [address] Care Team Providers Care Burning Plant Operator Name Role Phone Yodit Vines Primary Care Provider [phone] Allergies No known active allergies Medications venlafaxine [...] (07/30/2022): Added automatically from request for surgery [id number] Family History Relation Status Comments Mother Alive [...] - 3-dose SCDM series) 2013 PHQ-2 (Physician [place]) 04/01/2024 COVID-19 Vaccine ( season) 2024 Influenza [...] patient's age to complete this topic [place] [address] MEDICAID Care Teams Burning Plant Operator Relationship Specialty Start Date End Date Yodit Vines PA [address] [place] [address] PCP - General PHYSICIAN SPINNING FRAME CLEANER 04/15/19
--- OUTSIDE RECORDS SUMMARY | 2025-01-19 17:31 | XMS_ITS | Encounter Summary ---
Author Organization [facility] Address [address] [place] [address] Care Team Providers Care Smasher Name Role Phone Yodit Vines Primary Care Provider [phone] Encounter Details Date Type Department Care Team (Late st Contact Info) Description 07/27/2022 Prep for Procedure [facility] Urology - [address] [place] [address] Adilson Uriarte MD [address] [place] [address] Social History Tobacco Use Types [...] on filedocumented in this encounter Care Teams Smasher Relationship Specialty Start Date End Date Yodit Vines PA [address] [address] PCP - General PHYSICIAN BIOLOGIST AIDE 04/15/19 documented as of this encounter
== END 2025-01-19 15:07 | disposition home or self-care (01) ==
PROVIDERS: Emergency Provider Emergency Medicine; PCP Physician Assistant
DX: S09.90XA Unspecified injury of head, initial encounter (principal); S40.011A Contusion of right shoulder, initial encounter; S93.401A Sprain of unspecified ligament of right ankle, initial encounter; W18.30XA Fall on same level, unspecified, initial encounter; Z23 Encounter for immunization
CPT/HCPCS: 70450; 72125; 73030; 73610; 90471; 90715; 96372; 99284; J1885